=== PATIENT | male | born 1990 | race Caucasian/White ===

== ENCOUNTER 2017-08-20 01:17 | Day surgery (SDC) | payer SELFPAY ==
[2017-08-20 01:26] VITALS: BMI 25.7
--- NOTE | 2017-08-20 01:29 | PDOC ---
History of Present Illness - General Chief Complaint: Pain, Acute Stated Complaint: ABDOMINAL PAIN Time Seen by Provider: 08/20/17 01:22 History Source: Patient Exam Limitations: No Limitations - History of Present Illness Initial Comments: 08/20/17 01:27 This is a 26-year-old male who comes in with his and child for evaluation. Patient has right-sided abdominal pain times this evening. Patient denies any fevers or chills. Patient denies any anorexia. Patient denies history of similar pain. Patient is complaining of some mild nausea but no vomiting or diarrhea. PAST MEDICAL HISTORY: no significant history PAST SURGICAL HISTORY: no significant history FAMILY HISTORY: no pertinant history SOCIAL HISTORY: Pt lives with family and is employed. MEDICATIONS: reviewed ALLERGIES: As per nursing notes Review of Systems General: No fevers or chills, no weakness, no weight loss HEENT: No change in vision. No sore throat,. No ear pain CardioVascular: No chest pain or shortness of breath Respiratory:No cough, or wheezing. Gastrointestinal: no nausea, vomitting, diarrhea or constipation, No rectal bleeding, abdominal pain Genitourinary: No dysuria, hematuria, or frequency Musculoskeletal: No joint or muscle pain or swelling Neurologic: No headache, vertigo, dizziness or loss of consciousness Psychiatric: nor depression Skin: No rashes or easy bruising Endocrine: no increased thirst or abnormal weight change Allergic: no skin or latex allergy All other systems reviewed and normal Exam: General: Well-nourished well-developed individual, no acute distress HEENT: Throat: Normal, tonsils normal, no erythema or exudate Neck: Supple, no meningeal signs, no lymphadenopathy Eyes::Pupils equal reactive and round, extraocular motion intact Chest: Nontender to palpation Cardiac: S1-S2 normal, regular rate and rhythm, no murmurs rubs or gallops Respiratory: Lungs clear to auscultation bilateral Abdomen: Soft, nondistended, normal bowel sounds, mildly tender to palpation right lower quadrant no guarding or rebound Extremities: Warm, dry, no cyanosis, clubbing, or edema Skin: No rashes Neuro: Alert and oriented x3, CN II - XII intact, nonfocal exam with normal strength, normal sensation, normal reflexes, normal gait, Psych: Normal mood and affect Medical decision making: This is a 26-year-old male with right lower quadrant abdominal pain will obtain workup including CBC, comp, urinalysis, Will obtain a CAT scan abdomen and pelvis to rule out appendicitis or other intra-abdominal pathology We'll hydrate with some IV fluids We will reassess and follow 08/20/17 02:00 Reevaluation patient unchanged clinically, being hydrated. Waiting results of blood work and CT 04:00 Reevaluation. Patient clinically unchanged. CT shows a 9 x 8 mm mid and distal appendicoliths with interval appendiceal segment measuring 1.2 cm in diameter containing air and fluid consistent with early acute appendicitis, no bowel obstruction colitis free fluid or free air Assessment and plan: This is a 26-year-old male who comes in complaining of right lower abdominal pain 1 day. Patient had a workup that revealed a white count of 10.1 with a left shift and a CT that shows acute early appendicitis. We'll discuss results with surgeon patient [facility] Past History - Past Medical History Allergies/Adverse Reactions: Allergies Allergy/AdvReac Type Severity Reaction Status Date / Time No Known Allergies Allergy Verified 08/20/17 01:19 Home Medications: Ambulatory Orders NK [No Known Home Medication] 08/20/17 - Suicide/Smoking/Psychosocial Hx Smoking History: Never smoked Hx Alcohol Use: No Drug/Substance Use Hx: No *Physical Exam - Vital Signs Last Vital Signs Temp Pulse Resp BP Pulse Ox 98.6 F 70 14 134/88 99 08/20/17 01:19 08/20/17 01:19 08/20/17 01:19 08/20/17 01:19 08/20/17 01:19 ED Treatment Course - LABORATORY CBC & Chemistry Diagram: 08/20/17 01:47 08/20/17 01:47 *DC/Admit/Observation/Transfer Diagnosis at time of Disposition: Acute appendicitis Qualifiers: Acute appendicitis type: unspecified acute appendicitis type Qualified Code(s) : K35.80 - Unspecified acute appendicitis - Discharge Dispostion Condition at time of disposition: Stable Admit: Yes - Referrals - Patient Instructions - Post Discharge Activity
[2017-08-20] MEDS ORDERED: SODIUM CHLORIDE 1,000 ML IV SCH ×2 (01:30→18:15)
[2017-08-20 02:07] LABS: BASO % 0.3 % (0-2.0); EOS % 1.4 % (0-4.5); HEMATOCRIT 44.2 % (35.4-49); HEMOGLOBIN 15.6 GM/dL (11.7-16.9); LYMPH % 18.8 % (8-40); MCHC 35.4 g/dl (32.0-35.9); MEAN CELL VOLUME 87.7 fl (80-96); MEAN PLT VOLUME 9.4 fl (7.5-11.1); MONO % 4.2 % (3.8-10.2); NEUT % 75.3 % (42.8-82.8); PLATELET COUNT 205 K/MM3 (134-434); RBC 5.04 M/mm3 (4.00-5.60); RDW 13.1 % (11.9-15.9); WHITE BLOOD COUNT 10.1 K/mm3 (4.0-10.0)
[2017-08-20 02:09] LABS: URINE APPEARANCE CLEAR; URINE BILIRUBIN NEGATIVE (<2.0 mg/dL); URINE BLOOD NEGATIVE (NEGATIVE); URINE COLOR STRAW; URINE GLUCOSE (UA) NEGATIVE (NEGATIVE); URINE KETONE NEGATIVE (NEGATIVE); URINE LEUK ESTERASE NEGATIVE (NEGATIVE); URINE NITRITE NEGATIVE (NEGATIVE); URINE PROTEIN NEGATIVE (NEGATIVE); URINE UROBILINOGEN NEGATIVE mg/dL (0.2-1.0)
[2017-08-20 02:42] LABS: ALBUMIN 4.6 g/dl (3.4-5.0); ALK PHOS 91 U/L (45-117); ANION GAP 9 (8-16); BILIRUBIN,TOTAL 0.4 mg/dL (0.2-1.0); BLOOD UREA NITROGEN 12 mg/dL (7-18); CALCIUM 9.3 mg/dL (8.5-10.1); CHLORIDE 100 mmol/L (98-107); CO2 29 mmol/L (21-32); CREATININE 0.6 mg/dL (0.7-1.3); GLUCOSE,RANDOM 101 mg/dL (74-106); POTASSIUM 3.7 mmol/L (3.5-5.1); SGOT/AST 19 U/L (15-37); SGPT/ALT 42 U/L (12-78); SODIUM 138 mmol/L (136-145); TOT PROT 8.1 g/dl (6.4-8.2)
[2017-08-20] MEDS ORDERED: morphine CARPU-JECT 4 MG/1 ML DISP.SYRIN IVPUSH ONE (04:07)
[2017-08-20] MEDS ORDERED: PIPERACILLIN/TAZOBACTAM 4.5 GM VIAL IVPB ONE (04:12)
[2017-08-20] MEDS ORDERED: morphine SULFATE 4 MG/ML VIAL ONE (04:12)
[2017-08-20] MEDS ORDERED: PIPERACILLIN/TAZOB 4.5 GM/100 ML PRE-DOCKED IVPB STA (06:34)
[2017-08-20] MEDS ORDERED: HYDROmorphone HCL CARPU-JECT 1 MG/1 ML DISP.SYRIN ONE (07:42)
[2017-08-20] MEDS ORDERED: HYDROmorphone HCL CARPU-JECT 2 MG/1 ML DISP.SYRIN IVPB PRN (07:43)
[2017-08-20] MEDS ORDERED: ONDANSETRON 4 MG/2 ML VIAL IVPB PRN (08:22)
[2017-08-20] MEDS: PIPERACILLIN/TAZOB 3.375 GM 3.375 GM/50 ML BAG IVPB SCH ×2 (10:00→18:10)
[2017-08-20 10:25] LABS: BASO % 0.1 % (0-2.0); HEMATOCRIT 42.2 % (35.4-49); HEMOGLOBIN 14.7 GM/dl (11.7-16.9); LYMPH % 13.6 % (8-40); MCH 30.6 pg (25.7-33.7); MCHC 34.8 g/dl (32.0-35.9); MEAN CELL VOLUME 87.9 fl (80-96); MEAN PLT VOLUME 8.9 fl (7.5-11.1); MONO % 6.9 % (3.8-10.2); NEUT % 78.4 % (42.8-82.8); PLATELET COUNT 198 K/MM3 (134-434); RDW 12.3 % (11.9-15.9); WHITE BLOOD COUNT 10.4 K/mm3 (4.0-10.8)
[2017-08-20] MEDS ORDERED: BUPIVACAINE HCL 0.25% 125 MG/50 ML VIAL ONE (14:17)
[2017-08-20] MEDS ORDERED: oxyCODONE HCL 5 MG TABLET PO PRN ×2 (14:29)
[2017-08-20] MEDS ORDERED: LACTATED RINGERS SOLUTION 1,000 ML IV SCH (14:30)
[2017-08-20] MEDS ORDERED: LIDOCAINE HCL/PF 2% SDV 5ML VIAL ONE (14:37)
[2017-08-20] MEDS ORDERED: ROCURONIUM BROMIDE 50 MG/5 ML VIAL ONE (14:38)
[2017-08-20] MEDS ORDERED: MIDAZOLAM HCL 2 MG/2 ML SINGLE DOSE VIAL ONE (14:38)
[2017-08-20] MEDS ORDERED: DEXAMETHASONE SOD PHOSPHATE 4 MG/1 ML VIAL ONE (14:41)
[2017-08-20] MEDS ORDERED: ONDANSETRON 4 MG/2 ML VIAL ONE (14:41)
[2017-08-20] MEDS ORDERED: KETOROLAC TROMETHAMINE 30 MG/1 ML VIAL ONE (14:41)
[2017-08-20] MEDS ORDERED: NEOSTIGMINE METHYLSULFATE 0.5 MG/ML - 10 ML MDV ONE (14:47)
[2017-08-20] MEDS ORDERED: GLYCOPYRROLATE 0.2 MG/1 ML VIAL ONE (14:48)
[2017-08-20] MEDS ORDERED: PROPOFOL 20 ML ONE ×2 (14:56)
--- NOTE | 2017-08-20 14:56 | HP ---
Admitting History and Physical - Admission Chief Complaint: Abdominal pain History of Present Illness: 26 male with abdominal/RLQ pain x 1 day Mild nausea No fevers 1st episode History Source: Patient Limitations to Obtaining History: No Limitations - Smoking History Smoking history: Never smoked - Alcohol/Substance Use Hx Alcohol Use: No Home Medications - Allergies Allergies/Adverse Reactions: Allergies Allergy/AdvReac Type Severity Reaction Status Date / Time No Known Allergies Allergy Verified 08/20/17 01:19 - Home Medications Home Medications: Ambulatory Orders NK [No Known Home Medication] 08/20/17 Family Disease History - Family Disease History Family History: Unremarkable Review of Systems - Review of Systems Constitutional: denies: Fever HENT: reports: No Symptoms Neck: reports: No Symptoms Cardiovascular: reports: No Symptoms Respiratory: reports: No Symptoms Gastrointestinal: reports: Abdominal Pain Neurological: denies: Change in LOC Pain Intensity: 4 Physical Examination Vital Signs: Vital Signs Temperature 99.8 F H 08/20/17 14:05 Pulse Rate 85 08/20/17 14:05 Respiratory Rate 16 08/20/17 14:05 Blood Pressure 139/70 08/20/17 14:05 O2 Sat by Pulse Oximetry (%) 98 08/20/17 14:05 Constitutional: Yes: Calm HENT: Yes: WNL Neck: Yes: Supple Cardiovascular: Yes: Regular Rate and Rhythm Respiratory: Yes: Regular Gastrointestinal: Yes: Soft, Tenderness (RLQ). No: Tenderness, Rebound Neurological: Yes: Alert, Oriented Labs: CBC, BMP 08/20/17 09:30 08/20/17 01:47 Imaging - Results Cat Scan: Image Reviewed Problem List - Problems (1) Acute appendicitis Code(s): K35.80 - UNSPECIFIED ACUTE APPENDICITIS Qualifiers: Acute appendicitis type: unspecified acute appendicitis type Qualified Code (s): K35.80 - Unspecified acute appendicitis Assessment/Plan Acute appendicitis NPO Antibiotics Laparoscopic possible open appendectomy Risks and benefits explained Understands and agrees
[2017-08-20] MEDS ORDERED: BUPIVACAINE HCL/PF 0.25% (2.5MG/ML) 10 ML VIAL IJ ONE (16:05)
--- NOTE | 2017-08-20 16:10 | OP ---
Operative Note - Note: Operative Date: 08/20/17 Pre-Operative Diagnosis: Acute appendicitis Operation: Laparoscopic appendectomy Findings: Inflamed appendix Post-Operative Diagnosis: Other (Acute appendicitis) Surgeon: Donavon Soliz Anesthesia: General Specimens Removed: Appendix Estimated Blood Loss (mls): 5 Operative Report Dictated: Yes
--- NOTE | 2017-08-20 17:16 | SPEC ---
DATE OF OPERATION: 08/20/2017 SURGEON: Malcolm Soliz M.D. PREOPERATIVE DIAGNOSIS: Acute appendicitis. POSTOPERATIVE DIAGNOSIS: Acute appendicitis. PROCEDURE: Laparoscopic appendectomy. SPECIMEN: Appendix. ESTIMATED BLOOD LOSS: 5 mL. DRAINS: None. ANESTHESIA: GET. REASON FOR PROCEDURE: This 26-year-old gentleman presented to the ER for abdominal pain. He was found to have evidence of acute appendicitis on imaging. Because of this, he was consented for a laparoscopic, possible open appendectomy. RISKS AND BENEFITS: The risks and benefits were explained for a laparoscopic, possible open appendectomy. These included bleeding, infection, hernia, [place], DVT, PE, injury to surrounding structures including the liver, colon, bowel, bladder, ureter, vessel injury, nerve injury, abscess formation, staple line leak, staple line dehiscence as some of the possible complications. The patient understood and signed informed consent. DESCRIPTION OF PROCEDURE: The patient was placed supine on the operating room table. The patient underwent general endotracheal intubation. A Silva catheter was inserted by the nursing staff. The abdomen was prepped and draped in the usual sterile fashion. A timeout was performed. A periumbilical incision was made and a 5-mm optical trocar was inserted under direct visualization with the laparoscope. Pneumoperitoneum was then established. Subsequently, a 5-mm trocar was placed in the suprapubic area and a 12-mm trocar placed in the left lower quadrant. The patient was placed in Trendelenburg right side up position. After meticulous dissection, the appendix was identified. The appendix was freed from its surrounding structures and the appendix was retracted to the anterior abdominal wall. The base of the appendix was identified. A window was created within the mesentery near the base of the appendix. The appendix at its base was stapled using a laparoscopic Endo-DELBERT stapler with a white load. The mesoappendix was then transected using a laparoscopic Endo-DELBERT stapler with a white load. The appendix was placed in an EndoCatch bag. Inspection of both staple lines was identified. The staple line at the base of the appendix was noted to be fully intact. Hemostasis was noted at the staple line of the mesoappendix. Copious irrigation and suction was performed. The appendix was removed from the abdominal cavity and sent off the operative field as specimen. The patient was then placed in left side up position. The 12-mm trocar was removed. The fascia at this site was closed using a 0 Vicryl suture with a Erwin-Shay device. The patient was then placed supine. Pneumoperitoneum was desufflated and all further trocars were removed. All incision sites were irrigated and Marcaine was injected at all incision sites. The fascial suture was secured. All incision sites were closed using 4-0 Biosyn. Sterile dressings were applied. The patient tolerated the procedure well. The Silva catheter was removed and the patient was transferred to the recovery room in stable condition. MALCOLM SOLIZ M.D. [id number]
[2017-08-20] MEDS ORDERED: morphine SULFATE 4 MG/ML VIAL IVPUSH PRN (18:08)
[2017-08-20] MEDS: HEPARIN NA (PORCINE) 5,000 UNITS/ML 1ML VIAL SQ SCH (21:55)
[2017-08-21] MEDS: PIPERACILLIN/TAZOB 3.375 GM 3.375 GM/50 ML BAG IVPB SCH (01:14)
[2017-08-21] MEDS: HEPARIN NA (PORCINE) 5,000 UNITS/ML 1ML VIAL SQ SCH (06:11)
[2017-08-21 06:47] VITALS: BP 126/59; PULSE 64; TEMP 98.4
--- NOTE | 2017-08-21 07:51 | DS ---
Physical Examination Vital Signs: Vital Signs Temperature 98.4 F 08/21/17 06:46 Pulse Rate 64 08/21/17 06:46 Respiratory Rate 18 08/21/17 06:46 Blood Pressure 126/59 08/21/17 06:46 O2 Sat by Pulse Oximetry (%) 99 08/21/17 06:46 Findings/Remarks: Pt states that he voided yesterday. No nausea or emesis with clears. No flatus. Pain at a 5 to 6 and controlled with oral medications. Gastrointestinal: Yes: WNL, Normal Bowel Sounds, Soft, Tenderness (incisional tenderness), Other (incision all c/d/i with bandaids.) Labs: CBC, BMP 08/20/17 09:30 08/20/17 01:47 Laboratory Tests 08/21/17 08/21/17 08:00 08:00 WBC 10.6 Hgb 14.1 Hct 40.8 Plt Count 207 Sodium 139 Potassium 4.2 Chloride 104 Carbon Dioxide 29 Anion Gap 6 L BUN 11 Creatinine 0.6 L Discharge Summary Reason For Visit: APPENDICITIS Current Active Problems Acute appendicitis (Acute) Condition: Stable - Instructions Diet, Activity, Other Instructions: [address] [facility] Donavon Soliz M.D. [address] [place] [address],[address] [facility] [address] [facility] [place] [facility] [place] Robotic, Bariatric and General Surgery Postoperative Instructions for General Surgery Activity: Resume normal everyday activity as tolerated. You may walk and climb stairs without any limitation. We encourage you to walk as often as you can Do not lift anything more than 10 pounds for 8 weeks. At that time, you can return to full activity, including the gym, without limitation. Do not drive a motor vehicle while taking prescribes narcotic pain medication. Wound Care: If you have a bandage in place, leave it on for 3 days. At that time you may remove the outer bandage. If there are strips of tape on the skin after removing the outer bandage, leave them in place. They will fall off by themselves. Do not remove them. If there is clear glue on the skin after removing the outer bandage, leave it in place. Do not pick at it or peel it off. You may shower after taking the outer bandage off, 3 days after your surgery. For male groin hernia patients: you may notice a black and blue discoloration of your testicles. This is normal and should resolve over the next week or two. If this persists, please call the office. Diet: You may continue your regular diet at home. If you have a history of high blood pressure, you should be on a low sodium diet. If you have a history of Diabetes Mellitus, you should be on a diabetic/sugar controlled diet. If you had your gallbladder removed, you should be on a low cholesterol/low fat diet. Medications/Pain Management: You may resume previous medications unless told otherwise. You may take the prescribed narcotic pain medication as needed. If the narcotic medication is not needed for pain control, you may take Tylenol. Avoid all other pain medications including Advil, Ibuprofen, Motrin, Aspirin, Naprosyn, Aleve, Celebrex. Vomiting/Nausea: This may occur if you eat too fast, don't chew, or eat too much. Go back to fluids. If the vomiting or nausea persists, call the office. Constipation/Diarrhea: You may experience a change in bowel habits. Many things affect this, including taking pain medication. If either persist, call the office. Follow up: Call the office at [phone] for an appointment 2 weeks after your surgical procedure. Disposition: HOME - Home Medications Comprehensive Discharge Medication List: Ambulatory Orders Docusate Sodium [Colace -] 100 mg PO TID #90 capsule 08/20/17 Oxycodone HCl/Acetaminophen [Percocet 5-325 mg Tablet] 1 - 2 tab PO Q6H #28 tab MDD 4 08/20/17 levoFLOXacin [Levaquin -] 500 mg PO DAILY #7 tablet 08/20/17 metroNIDAZOLE [Flagyl -] 500 mg PO TID #21 tablet 08/20/17
[2017-08-21 09:02] LABS: BASO % 0.3 % (0-2.0); HEMATOCRIT 40.8 % (35.4-49); HEMOGLOBIN 14.1 GM/dl (11.7-16.9); LYMPH % 13.3 % (8-40); MCH 30.5 pg (25.7-33.7); MCHC 34.7 g/dl (32.0-35.9); MEAN PLT VOLUME 9.6 fl (7.5-11.1); MONO % 5.2 % (3.8-10.2); NEUT % 81.2 % (42.8-82.8); PLATELET COUNT 207 K/MM3 (134-434); RBC 4.64 M/mm3 (4.00-5.60); RDW 12.2 % (11.9-15.9); WHITE BLOOD COUNT 10.6 K/mm3 (4.0-10.8)
[2017-08-21 09:53] LABS: ANION GAP 6 (8-16); BLOOD UREA NITROGEN 11 mg/dL (7-18); CALCIUM 8.6 mg/dL (8.5-10.1); CHLORIDE 104 mmol/L (98-107); CO2 29 mmol/L (21-32); GLUCOSE,RANDOM 107 mg/dL (74-106); POTASSIUM 4.2 mmol/L (3.5-5.1); SODIUM 139 mmol/L (136-145)
[2017-08-21 09:58] LABS: CREATININE 0.6 mg/dL (0.7-1.3)
--- NOTE | 2017-08-21 12:03 | PN ---
Progress Note, Physician Chief Complaint: Pt. pain controlled, no GA complaints. - Current Medication List Current Medications: Active Medications Heparin Sodium (Porcine) (Heparin -) 5,000 unit SQ TID NORI Last Admin: 08/21/17 06:11 Dose: 5,000 unit Piperacillin Sod/Tazobactam Sod (Zosyn 3.375gm Ivpb (Pre-Docked)) 3.375 gm in 50 mls @ 100 mls/hr IVPB Q8H-IV NORI PRN Reason: Protocol Last Admin: 08/21/17 01:14 Dose: 100 mls/hr Morphine Sulfate (Morphine Sulfate) 4 mg IVPUSH Q4H PRN PRN Reason: PAIN LEVEL 4 - 6 Ondansetron HCl (Zofran Injection) 4 mg IVPB Q4H PRN PRN Reason: NAUSEA Oxycodone HCl (Roxicodone -) 10 mg PO Q4H PRN PRN Reason: PAIN LEVEL 7 - 10 Oxycodone HCl (Roxicodone -) 5 mg PO Q4H PRN PRN Reason: PAIN LEVEL 1 - 3 - Objective Vital Signs: Vital Signs Temperature 98.4 F 08/21/17 06:46 Pulse Rate 64 08/21/17 06:46 Respiratory Rate 18 08/21/17 08:16 Blood Pressure 126/59 08/21/17 06:46 O2 Sat by Pulse Oximetry (%) 99 08/21/17 08:16 Constitutional: Yes: Well Nourished, No Distress, Calm Musculoskeletal: Yes: WNL Neurological: Yes: WNL, Alert, Oriented ...Motor Strength: WNL Labs: CBC, BMP 08/21/17 08:00 08/21/17 08:00 Assessment/Plan POD#1 s/p Laparoscopic appendectomy under GA. Doing well. D/C from anesthesia care.
--- NOTE | 2017-08-23 15:04 | PATH ---
Surgical Pathology Report Patient Name: JOSE MUÑOZ Med. Rec. #: [id number] /Age/Gender: 1990 (Age: 26) / M Account: [id number] Location: [facility] MED-SUR[facility] Taken: 08/20/2017 Received: 08/20/2017 Reported: 08/23/2017 Physicians: Donavon Soliz M.D. Specimen(s) Received APPENDIX Clinical History Acute appendicitis Final Diagnosis APPENDIX, LAPAROSCOPIC APPENDECTOMY: ACUTE APPENDICITIS AND PERIAPPENDICITIS. Electronically Signed Arlen Zapata M.D. Gross Description Received in formalin labelled "appendix" is a 11 cm in length, up to 1.1 cm in diameter appendix with attached periappendiceal fat. The appendix has a robins-brown serosa, 0.1-0.2 cm thick wall, and robins-brown mucosa. Within the lumen is a 0.7 cm fecalith. No point of rupture is identified. [employer] Specialist sections are submitted in one cassette. [facility]/08/21/2017 [facility]/08/21/2017
== END 2017-08-21 12:00 | disposition home or self-care (01) ==
LOC: FER 01:17 → FM/S 04:58 → UNDOADMIN 04:58 → FASUSAT 17:00 → FM/S 08-21 07:12 → FASUSAT 08-21 07:12
PROVIDERS: ATTEND Surgery
PROC: 0DTJ4ZZ Resection of Appendix, Percutaneous Endoscopic Approach (ICD-10-PCS; principal; 2017-08-20 14:57)
DX: K35.80 Unspecified acute appendicitis (principal)
CPT/HCPCS: 36415; 74177-TC; 80048; 80053; 81003; 85025; 94010; 94760; 99282-25; J1644; J7030